=== PATIENT | female | born 1990 | race Caucasian/White ===

== ENCOUNTER 2019-08-01 17:33 | Emergency (ER) | payer SELFPAY ==
[~2019-08-01] VITALS: Ht 162.6 cm; Wt 84.0 kg
[2019-08-01 17:50] VITALS: BP 118/68
[2019-08-01] MEDS ORDERED: MORPHINE SULFATE 10 MG/ML VIAL. SQ STA (18:05)
--- NOTE | 2019-08-01 18:10 | PHYS DOC ---
Past Medical History Past Medical History: No Pertinent History Past Surgical History: Appendectomy, Cholecystectomy, , Tonsillectomy Additional Past Surgical Histo: cyst on ovary Smoking Status: Current Every Day Smoker Alcohol Use: None Adult General Chief Complaint Chief Complaint: LOWEREXTREMITY INJURY [facility] HPI Patient is a 29 year old female who presents with trauma to left lower extremity that occurred morning. The patient states that she was cutting wood and somehow her foot got caught under a log and then she fell backwards and hyperextended her toe and foot and ever since that she's been having difficulty walking on her left leg. The patient has pain to lateral medial sides of her ankle, has pain in the left lower extremity, and has pain to the left great toe. Reports her pain is 10 out of 10 in severity. The patient's been taking ibuprofen and Tylenol at home that has not been helping her pain. Denies any additional symptoms. Complete ROS were reviewed and found to be within normal limits, except as documented in the HPI Current Medications Current Medications Current Medications Medications (Trade) Dose Ordered Sig/Bret Start Time Stop Time Status Last Admin Dose Admin Morphine Sulfate (Morphine Sulfate) 10 mg 1X STAT 08/01/19 18:05 08/01/19 18:32 DC 08/01/19 18:25 10 MG Ondansetron HCl (Zofran Odt) 4 mg 1X ONCE 08/01/19 19:00 08/01/19 19:02 DC 08/01/19 19:00 4 MG Allergies Allergies Allergies Coded Allergies Type Severity Reaction Last Updated Verified No Known Drug Allergies 08/01/19 No Physical Exam Physical Exam Constitutional: Well developed, well nourished, no acute distress, non-toxic a ppearance. [] HENT: Normocephalic, atraumatic, bilateral external ears normal, oropharynx moist, no oral exudates, nose normal. [] Extremities: Tenderness to left lateral and medial ankle going down the left foot. Tenderness to great toe and lower tib fib. No bruising or edema noted. Neurologic: Alert and oriented X 3, normal motor function, normal sensory function, no focal deficits noted. [] Psychologic: Affect normal, judgement normal, mood normal. [] Current Patient Data Vital Signs Vital Signs Date Time Temp Pulse Resp B/P (MAP) Pulse Ox O2 Delivery O2 Flow Rate FiO2 08/01/19 18:25 16 99 Room Air 08/01/19 17:50 98.4 72 118/68 (85) 98.4 EKG EKG [] Radiology/Procedures Radiology/Procedures [][facility] [address] [place] [address] IMAGING REPORT Signed PATIENT: KODY GUZMAN ACCOUNT: [id number] : 1990 LOCATION: ER AGE: 29 SEX: F EXAM STATUS: REG ER ORD. PHYSICIAN: IVAN GARCIA APRN REASON: trauma. LLE pain after fall x3 days ago PROCEDURE: ANKLE LEFT 3V Exam: Left tib-fib 2 views. Left ankle 3 views. Left foot 3 views INDICATION: Trauma TECHNIQUE: Frontal, lateral views of the left tibia and fibula. Frontal, lateral and oblique views of the left ankle and foot Comparisons: None FINDINGS: Tib-fib: Bone mineralization is normal. No acute or healed fractures. Soft tissues are unremarkable. Joint spaces are well-maintained. Ankle: Bone mineralization is normal. No acute or healed fractures. Soft tissues are unremarkable. Joint spaces are well-maintained. Foot: Bone mineralization is normal. No acute or healed fractures. Soft tissues are unremarkable. Joint spaces are well-maintained. IMPRESSION: 1. No acute osseous abnormality of the left tibia and fibula. 2. No acute osseous abnormality of the left foot. 3. No acute osseous abdomen the of the left ankle. Electronically signed by: Ania Villa MD (08/01/2019 7:18 PM) [id number] DICTATED and SIGNED BY: ANIA VILLA MD DATE: 08/01/19 1918 Course & Med Decision Making Course & Med Decision Making Pertinent Labs and Imaging studies reviewed. (See chart for details) Will get imaging and give supportive care. Imaging is unremarkable. Will d/c home. Dragon Disclaimer Brooklynn Disclaimer This electronic medical record was generated, in whole or in part, using a voice recognition dictation system. Departure Departure Impression: Primary Impression: Left foot pain Disposition: HOME, SELF-CARE Condition: STABLE Referrals: NO PCP (PCP) Patient Instructions: Foot Contusion Additional Instructions: Thank you for visiting [facility]. We appreciate you trusting us with your care. If any additional problems come up don't hesitate to return to visit us. Please follow up with your primary care provider so they can plan additional care if needed and know about the problem that you had. If symptoms worsen come back to the Emergency Department. Any concerning symptoms that start such as chest pain, shortness of air, weakness or numbness on one side of the body, running high fevers or any other concerning symptoms return to the ER. IVAN GARCIA APRN Aug 01, 2019 18:10
[2019-08-01] MEDS ORDERED: ONDANSETRON ODT 4 MG TAB.RAPDIS. PO ONE (19:00)
--- NOTE | 2019-08-01 19:21 | RAD ---
Exam: Left tib-fib 2 views. Left ankle 3 views. Left foot 3 views INDICATION: Trauma TECHNIQUE: Frontal, lateral views of the left tibia and fibula. Frontal, lateral and oblique views of the left ankle and foot Comparisons: None FINDINGS: Tib-fib: Bone mineralization is normal. No acute or healed fractures. Soft tissues are unremarkable. Joint spaces are well-maintained. Ankle: Bone mineralization is normal. No acute or healed fractures. Soft tissues are unremarkable. Joint spaces are well-maintained. Foot: Bone mineralization is normal. No acute or healed fractures. Soft tissues are unremarkable. Joint spaces are well-maintained. IMPRESSION: 1. No acute osseous abnormality of the left tibia and fibula. 2. No acute osseous abnormality of the left foot. 3. No acute osseous abdomen the of the left ankle. Electronically signed by: Ania Hall MD (08/01/2019 7:18 PM) [id number]
== END 2019-08-01 19:30 | disposition home or self-care (01) ==
LOC: ER 17:33
DX: M79.672 Pain in left foot (principal); M25.572 Pain in left ankle and joints of left foot; M79.675 Pain in left toe(s); F17.200 Nicotine dependence, unspecified, uncomplicated; Z90.89 Acquired absence of other organs; Z90.49 Acquired absence of other specified parts of digestive tract; Z98.890 Other specified postprocedural states
CPT/HCPCS: 73590; 73610; 73630; 96372; 99284; J2270; Q0162